=== PATIENT | male | born 1980 | race American Indian/Alaskan Native ===

== ENCOUNTER 2017-10-17 09:05 | Emergency (ER) | payer SELFPAY ==
[2017-10-17 09:24] VITALS: BP 148/90
[2017-10-17] MEDS ORDERED: MOTRIN PO ONE (09:28)
[2017-10-17 09:40] LABS: Basophils % (Auto) 0.2 % (0.0-1.8); Hematocrit 43.9 % (35.5-45.6); Hemoglobin 14.5 gm/dl (11.8-15.2); Mean Corpuscular HGB Conc 33 % (32-34); Mean Corpuscular Hemoglobin 31 pg (28-32); Mean Corpuscular Volume 93 fl (84-94); Platelet Count 210 K/mm3 (140-440); Red Blood Count 4.74 M/mm3 (3.65-5.03); Red Cell Distribution Width 13.7 % (13.2-15.2); White Blood Count 15.3 K/mm3 (4.5-11.0)
[2017-10-17 09:58] LABS: Anion Gap 17 mmol/L; BUN/Creatinine Ratio 12; Blood Urea Nitrogen 11 mg/dL (9-20); Carbon Dioxide 26 mmol/L (22-30); Chloride 96.5 mmol/L (98-107); Glucose 146 mg/dL (75-100); Potassium 4.5 mmol/L (3.6-5.0); Sodium 135 mmol/L (137-145)
[2017-10-17] MEDS ORDERED: LIDOCAINE VISCOUS 2% PO ONE (11:41)
[2017-10-17] MEDS ORDERED: CLEOCIN PO ONE (12:11)
[2017-10-17] MEDS ORDERED: AUGMENTIN 875 MG PO ONE (12:11)
[2017-10-17] MEDS ORDERED: NORCO 7.5/325 PO ONE (12:11)
--- NOTE | 2017-10-17 12:15 | Emergency Department Report ---
HPI - General Chief Complaint: Sore Throat Time Seen by Provider: 10/17/17 11:35 ED Past Medical Hx - Past Medical History Hx GERD: Yes - Social History Smoking Status: Current Every Day Smoker Substance Use Type: Alcohol, Marijuana ED Review of Systems ROS: Stated complaint: NEVES/CANT SWALLOW Other details as noted in HPI Physical Exam - Physical Exam Vital Signs: Vital Signs 10/17/17 09:17 Temperature 99.9 F H Pulse Rate 87 Respiratory 18 Rate Blood Pressure 148/90 O2 Sat by Pulse 97 Oximetry ED Course Vital Signs 10/17/17 09:17 Temperature 99.9 F H Pulse Rate 87 Respiratory 18 Rate Blood Pressure 148/90 O2 Sat by Pulse 97 Oximetry ED Medical Decision Making - Lab Data Result diagrams: 10/17/17 09:30 10/17/17 09:30 Critical care attestation.: If time is entered above; I have spent that time in minutes in the direct care of this critically ill patient, excluding procedure time. ED Disposition Disposition: DC-01 TO HOME OR SELFCARE Is pt being admited?: No Does the pt Need Aspirin: No Condition: Stable Referrals: PRIMARY CAREMD [Primary Care Provider] - 3-5 Days Time of Disposition: 12:15
--- NOTE | 2017-10-17 12:40 | Emergency Department Report ---
HPI - General Chief Complaint: Sore Throat Time Seen by Provider: 10/17/17 11:35 - HPI HPI: The patient is a 37-year-old male who presents for evaluation of soreness of throat. The patient reports one day of throat pain, moderate in severity, stinging and burning in quality, exacerbated with swallowing, and improved with warm salt water gargle. The patient denies cough, dyspnea, neck stiffness, dysphagia, stridor, drooling, difficulty tolerating secretions, dysphonia, hoarseness of voice, abdominal pain. ED Past Medical Hx - Past Medical History Hx GERD: Yes - Social History Smoking Status: Current Every Day Smoker Substance Use Type: Alcohol, Marijuana - Medications Home Medications: Home Medications Medication Instructions Recorded Confirmed Last Taken Type Clindamycin [Clindamycin CAP] 450 mg PO TID #30 capsule 10/17/17 Unknown Rx HYDROcodone/ACETAMINOPHEN [[place] 1 each PO Q8HR #15 tablet 10/17/17 Unknown Rx 7.5-325 Tablet] Ibuprofen [Motrin] 800 mg PO Q8HR PRN #14 tablet 10/17/17 Unknown Rx ED Review of Systems ROS: Stated complaint: NEVES/CANT SWALLOW Other details as noted in HPI Constitutional: denies: fever ENT: reports sore throat denies: throat or neck pain Respiratory: denies: cough, shortness of breath Cardiovascular: denies: chest pain Endocrine: denies unexplained weight loss or gain Gastrointestinal: denies: abdominal pain, nausea Genitourinary: denies: dysuria Musculoskeletal: denies: leg swelling Skin: denies: rash Neurological: denies: headache Hematological/Lymphatic: denies: easy bleeding or easy bruising Psych: denies sadness or hopelessness Physical Exam - Physical Exam Vital Signs: Vital Signs 10/17/17 09:17 Temperature 99.9 F H Pulse Rate 87 Respiratory 18 Rate Blood Pressure 148/90 O2 Sat by Pulse 97 Oximetry Physical Exam: General: well-nourished, well-developed, no acute distress Head: Normocephalic, atraumatic Eyes: normal sclera ENT: 2+ Bilateral tonsillar erythema and swelling present, no tonsillar exudates , Mucous membranes are pink and moist Neck: trachea midline, neck supple, No neck stiffness, no cervical adenopathy Respiratory: Breath sounds equal bilaterally, no wheezing, rales, or rhonchi Cardio: S1 and S2 present, no murmurs, rubs, gallops, capillary refill is brisk Abdomen: Normoactive bowel sounds, soft abdomen, no rigidity, no guarding or rebound tenderness Musc: No pitting edema Skin: No rash Neuro: no facial drooping, normal speech Psych: Normal affect ED Course Vital Signs 10/17/17 09:17 Temperature 99.9 F H Pulse Rate 87 Respiratory 18 Rate Blood Pressure 148/90 O2 Sat by Pulse 97 Oximetry ED Medical Decision Making - Lab Data Result diagrams: 10/17/17 09:30 10/17/17 09:30 - Medical Decision Making The patient was seen and examined by myself. The patient is placed on a cardiac surgeon and continuous pulse ox. On initial evaluation, the patient was found to be in no distress. Evaluation orders were placed. Exam findings are consistent with acute tonsillitis. The patient is given a tablet of clindamycin for treatment of acute tonsillitis, and Motrin and [place] for his pain. Lab results revealed mild leukocytosis, WBC 15. The patient was reevaluated and reported that their symptoms were markedly improved. As patient is afebrile, and without stridor, drooling, inability to tolerate secretions, dysphonia, dyspnea, or any other signs of impending airway obstruction, the patient is stable for outpatient treatment. The patient is given follow-up and return instructions. The patient expressed understanding and agreed with the plan. The patient is discharged in stable condition. Critical care attestation.: If time is entered above; I have spent that time in minutes in the direct care of this critically ill patient, excluding procedure time. ED Disposition Clinical Impression: Acute tonsillitis Qualifiers: Pharyngitis/tonsillitis etiology: unspecified etiology Qualified Code(s): J03.90 - Acute tonsillitis, unspecified Acute pharyngitis Qualifiers: Pharyngitis/tonsillitis etiology: unspecified etiology Qualified Code(s): J02.9 - Acute pharyngitis, unspecified Disposition: DC-01 TO HOME OR SELFCARE Is pt being admited?: No Does the pt Need Aspirin: No Condition: Stable Instructions: Pharyngitis (ED), Tonsillitis (ED) Prescriptions: Clindamycin [Clindamycin CAP] 450 mg PO TID #30 capsule HYDROcodone/ACETAMINOPHEN [[place] 7.5-325 Tablet] 1 each PO Q8HR #15 tablet Ibuprofen [Motrin] 800 mg PO Q8HR PRN #14 tablet PRN Reason: Pain Referrals: [facility] [Outside] - 3-5 Days GISELA LERMA MD [Staff Physician] - 10/18/17 Time of Disposition: 12:36
== END 2017-10-17 12:44 | disposition home or self-care (01) ==
LOC: ED 09:05
DX: J03.90 Acute tonsillitis, unspecified (principal); J02.9 Acute pharyngitis, unspecified; F17.200 Nicotine dependence, unspecified, uncomplicated; F12.10 Cannabis abuse, uncomplicated
CPT/HCPCS: 36415; 80048; 85025